=== PATIENT | male | born 1945 | race African-American/Black ===

== ENCOUNTER 2017-11-20 01:41 | Emergency (ER) | payer MEDICAID ==
[~2017-11-20] VITALS: Ht 195.6 cm; Wt 105.0 kg
[2017-11-20 09:35] VITALS: BP 136/68
== END 2017-11-20 10:00 | disposition home or self-care (01) ==
LOC: ER 01:41
DX: Z04.8 Encounter for examination and observation for other specified reasons (principal); Y08.89XA Assault by other specified means, initial encounter; Y93.9 Activity, unspecified; Y92.9 Unspecified place or not applicable; Z85.46 Personal history of malignant neoplasm of prostate
CPT/HCPCS: 99283; Z7610

== ENCOUNTER 2017-11-20 20:52 | Emergency (ER) | payer MEDICAID ==
[~2017-11-20] VITALS: Ht 195.6 cm; Wt 102.0 kg
[2017-11-20 23:54] VITALS: BP 132/82
== END 2017-11-20 23:56 | disposition home or self-care (01) ==
LOC: ER 20:52
DX: S09.8XXA Other specified injuries of head, initial encounter (principal); Y08.89XA Assault by other specified means, initial encounter; Y93.9 Activity, unspecified; Y92.89 Other specified places as the place of occurrence of the external cause; Z85.9 Personal history of malignant neoplasm, unspecified
CPT/HCPCS: 99283

== ENCOUNTER 2017-12-05 19:08 | Emergency (ER) | payer MEDICARE, MEDICAID ==
[~2017-12-05] VITALS: Ht 195.6 cm; Wt 102.0 kg
[2017-12-06 07:49] LABS: HEMATOCRIT. 28.2 % (42.0-52.0); HEMOGLOBIN. 9.3 g/dL (14.0-18.0); MEAN CORPUSCULAR HEMOGLOBIN 30.7 pg (28.0-32.0); MEAN CORPUSCULAR VOLUME 93.2 fL (80.0-94.0); MEAN PLATELET VOLUME 7.2 fl (7.4-10.4); PLATELET 256 x1000/uL (130-400); RED BLOOD CELL COUNT 3.03 mill/uL (4.7-6.1); RED CELL DISTRIBUTION WIDTH 16.6 % (11.6-14.6)
[2017-12-06 07:52] LABS: CHLORIDE 109 mEq/L (98-107)
[2017-12-06 07:57] LABS: ETHANOL BLOOD < 10 mg/dL
[2017-12-06 08:37] LABS: PLATELET ESTIMATE NORMAL
[2017-12-06 13:20] VITALS: BP 134/72
== END 2017-12-06 14:50 | disposition left against medical advice (07) ==
LOC: ER 21:02
DX: F32.9 Major depressive disorder, single episode, unspecified (principal); Z90.49 Acquired absence of other specified parts of digestive tract; Z85.46 Personal history of malignant neoplasm of prostate
CPT/HCPCS: 36415; 80048; 80307; 80329; 85025; 99284; G0482; Z7610

== ENCOUNTER 2017-12-08 08:54 | Emergency (ER) | payer OTHER ==
[~2017-12-08] VITALS: Ht 195.6 cm; Wt 102.0 kg
[2017-12-08 09:04] VITALS: BP 103/58
== END 2017-12-08 13:24 | disposition home or self-care (01) ==
LOC: ER 08:54
DX: Z95.0 Presence of cardiac pacemaker (principal); C80.1 Malignant (primary) neoplasm, unspecified; Z90.89 Acquired absence of other organs
CPT/HCPCS: 99281

== ENCOUNTER 2017-12-10 06:58 | Emergency (ER) | payer OTHER, MEDICAID ==
[~2017-12-10] VITALS: Ht 195.6 cm; Wt 103.0 kg
[2017-12-10 06:59] VITALS: BP 136/58
== END 2017-12-10 10:40 | disposition home or self-care (01) ==
LOC: ER 06:58
DX: Z60.9 Problem related to social environment, unspecified (principal); Z90.49 Acquired absence of other specified parts of digestive tract
CPT/HCPCS: 99281; 99283

== ENCOUNTER 2017-12-13 13:44 | Emergency (ER) | payer OTHER ==
[~2017-12-13] VITALS: Ht 195.6 cm; Wt 102.0 kg
[2017-12-13] MEDS ORDERED: SODIUM CHLORIDE 0.9% 1,000 ML IV ONE (14:40)
[2017-12-13] MEDS ORDERED: ONDANSETRON HCL 4MG/2ML INJ IV STA (14:40)
[2017-12-13 15:27] LABS: HEMATOCRIT. 26.1 % (42.0-52.0); HEMOGLOBIN. 8.8 g/dL (14.0-18.0); MEAN CORPUSCULAR HEMOGLOBIN 30.9 pg (28.0-32.0); MEAN PLATELET VOLUME 7.2 fl (7.4-10.4); PLATELET 249 x1000/uL (130-400); RED BLOOD CELL COUNT 2.84 mill/uL (4.7-6.1); RED CELL DISTRIBUTION WIDTH 16.2 % (11.6-14.6)
[2017-12-13 15:31] LABS: CHLORIDE 108 mEq/L (98-107)
[2017-12-13 15:34] LABS: INR 1.1; PARTIAL THROMBOPLASTIN TIME 26.6 sec (23.4-31.0); PROTHROMBIN TIME 11.2 sec (9.1-11.1)
[2017-12-13 15:37] LABS: ETHANOL BLOOD < 10 mg/dL
[2017-12-13 15:57] LABS: PLATELET ESTIMATE NORMAL
[2017-12-13] MEDS ORDERED: POTASSIUM CHLORIDE 20MEQ TABLET SR PO ONE (16:45)
[2017-12-13] MEDS ORDERED: LORAZEPAM 2MG/ML CPJ IM ONE (18:15)
[2017-12-13 18:39] VITALS: BP 128/63
== END 2017-12-13 17:34 | disposition short-term general hospital (02) ==
LOC: ER 13:44
DX: R62.7 Adult failure to thrive (principal); E87.6 Hypokalemia; R53.1 Weakness; R00.1 Bradycardia, unspecified; C61 Malignant neoplasm of prostate; C79.9 Secondary malignant neoplasm of unspecified site; Z90.49 Acquired absence of other specified parts of digestive tract
CPT/HCPCS: 36415; 70450; 71045; 80053; 83880; 84484; 85025; 85610; 85730; 93005; 99285; G0482; J7030